=== PATIENT | female | born 1950 | race Caucasian/White ===

== ENCOUNTER → 2021-03-16 11:57 | Outpatient (CLI) | payer MEDICARE, SELFPAY ==
--- NOTE | ~2021-03-16 | DEXA_ITS ---
Bone Density Report Name: Clemencia Reyes Age: 70 Sex: Female Ethnicity: White Date of : 1950 Indication: postmenopausal osteoporosis; Referring Provider: Keerthi Marroquin Study: Bone densitometry was performed. Exam Date: March 16, 2021 Accession number: [id number] Bone Density: Region BMD T-score Z-score Classification AP Spine (L1-L4) 0.691 -3.2 -1.2 Osteoporosis Femoral Neck (Left) 0.582 -2.4 -0.6 Osteopenia Total Hip (Left) 0.753 -1.5 -0.1 Osteopenia Femoral Neck (Right) 0.574 -2.5 -0.7 Osteoporosis Total Hip (Right) 0.752 -1.6 -0.1 Osteopenia Total Hip Mean 0.753 -1.6 -0.1 Osteopenia World Health Organization criteria for BMD impression classify patients as: Normal (T-score at or above -1.0), Osteopenia (T-score between -1.0 and -2.5), or Osteoporosis (T-score at or below -2.5). 10-year Fracture Risk: FRAX not reported because: Some T-score for Spine Total or Hip Total or Femoral Neck at or below -2.5 Previous Exams: Region Exam Age BMD T-score BMD Change BMD Change Date g/cm2 vs Baseline vs Previous AP Spine(L1-L4) 03/16/2021 70 0.691 -3.2 -0.017 -0.017 12/22/2018 68 0.708 -3.1 Total Hip(Left) 03/16/2021 70 0.753 -1.5 0.000 0.000 12/22/2018 68 0.753 -1.5 Total Hip(Right) 03/16/2021 70 0.752 -1.6 0.001 0.001 12/22/2018 68 0.750 -1.6 *Denotes significance at 95% confidence level, LSC for AP Spine = 0.022 g/cm2, LSC for Total Hip = 0.027 g/cm2 Clinical Information Provided by Patient: Has used the following medications: Vitamin D, Calcium Patient maximum height was 62.5 Menopause Age: 44 No regular weight bearing exercise Onset of menses at age 13 Number of children 6 Impression: The patient has osteoporosis, based on the Total Spine T-score. No significant bone loss was observed. Discussion: INCREASED RISK OF FRACTURE. BONE DENSITY IS UNDESIRABLY LOW AT ONE OR MORE SKELETAL SITES, CONSISTENT WITH POSTMENOPAUSAL OSTEOPOROSIS. This patient's lowest T-score meets the World Health Organization's (WHO) criteria for osteoporosis at one or more sites (T-score -2.5 or below). In untreated patients, the risk of osteoporotic fracture increases approximately two-fold for each 1.0 SD decrease in T-score. Low bone density is not the only risk factor for fracture; also consider factors such as patient's age, frailty or poor health, risk of falling, risk of injury, previous o
--- NOTE | ~2021-03-16 | MM_ITS ---
EXAMINATION: MM screening [facility] BI w ian HISTORY: Screening TECHNIQUE: Craniocaudal and mediolateral oblique 3-D tomosynthesis images were obtained and synthetic 2-D images were generated. CAD analysis was submitted and interpreted. COMPARISON: Comparison to multiple prior studies sequentially, with oldest reviewed study dated 08/2012. BREAST PARENCHYMAL COMPOSITION: There are scattered areas of fibroglandular density. FINDINGS: There is no evidence of suspicious mass, calcification, or architectural distortion to sugg est malignancy in either breast. There has been no suspicious interval change. IMPRESSION: 1. No mammographic evidence of malignancy. 2. Recommend routine screening mammography in one year. BI-RADS Category 1: Negative Reviewed, dictated and finalized at location A.
== END ==
PROVIDERS: PCP Nurse Practitioner; Visit Provider Nurse Practitioner
DX: Z12.31 Encounter for screening mammogram for malignant neoplasm of breast (principal); M81.0 Age-related osteoporosis without current pathological fracture; M85.852 Other specified disorders of bone density and structure, left thigh; M85.851 Other specified disorders of bone density and structure, right thigh
CPT/HCPCS: 77063; 77067; 77080

== ENCOUNTER → 2022-01-22 07:48 | Outpatient (CLI) | payer MEDICARE, SELFPAY ==
--- NOTE | ~2022-01-22 | US_ITS ---
EXAMINATION: US right upper quadrant DATE: 01/22/2022 08:10 INDICATION: Abnormal liver function tests. TECHNIQUE: Multiple grayscale and Doppler ultrasound images of the abdomen were obtained. COMPARISON: Ultrasound 11/13/2017 FINDINGS: The visualized portions of the head and body of the pancreas are normal. There is diffuse h epatic steatosis. There is normal flow in main portal vein. The gallbladder is normal in size. No gal lstones or gallbladder wall thickening. There is no sonographic Bassett sign. The common duct is job l and measures 4 mm. IMPRESSION: 1. Diffuse hepatic steatosis. Reviewed, dictated and finalized at location A.
== END ==
PROVIDERS: PCP Internal Medicine; Visit Provider Clinical Nurse Specialist
DX: R74.8 Abnormal levels of other serum enzymes (principal); K76.0 Fatty (change of) liver, not elsewhere classified
CPT/HCPCS: 76705

== ENCOUNTER → 2022-08-16 09:03 | Outpatient (CLI) | payer MEDICARE, SELFPAY ==
--- NOTE | ~2022-08-16 | US_ITS ---
Limited Abdominal Sonogram: Real-time sonographic imaging of the right upper quadrant was performed. Clinical History: Abnormal serum enzymes Findings: The liver appears normal with no evidence of mass lesion or bile duct dilatation. Main por jono vein demonstrates normal direction of flow. The gallbladder is well distended, and appears normal with no evidence of gallstone or wall thickening. The common bile duct measures 4 mm. The visualize d pancreas, aorta, and IVC are unremarkable. Impression: No significant abnormality seen. Reviewed, dictated and finalized at location . AND SALARY ADMINISTRATOR Impression: No significant abnormality seen.
== END ==
PROVIDERS: PCP Internal Medicine; Visit Provider Clinical Nurse Specialist
DX: R74.8 Abnormal levels of other serum enzymes (principal)
CPT/HCPCS: 76705

== ENCOUNTER 2022-08-21 08:14 | Outpatient (CLI) | payer MEDICARE, SELFPAY ==
[2022-08-21 18:09] LABS: Basophils Percent Auto 0.5 % (0.2-1.2); Eosinophils Absolute Auto 0.1 K/mm3 (0-0.3); Eosinophils Percent Auto 1.9 % (0-4.4); Hematocrit 44.1 % (37.0-47.0); Hemoglobin 13.8 g/dL (12.0-15.0); Lymphocytes Absolute Auto 1.28 K/mm3 (0.9-3.2); Lymphocytes Percent Auto 30.7 % (18.3-44.2); Mean Corpuscular HGB Conc 31.3 g/dl (32-36); Mean Corpuscular Volume 89.6 fl (80-100); Mean Platelet Volume 10.6 fl (7.4-10.4); Monocytes Absolute Auto 0.3 K/mm3 (0.1-0.6); Monocytes Percent Auto 7.4 % (2.6-8.5); Neutrophils Absolute Auto 2.5 K/mm3 (1.3-6.7); Neutrophils Percent Auto 59.5 % (45.5-73.1); Platelet Count Result 146 k/mm3 (150-375); Red Blood Count 4.92 M/mm3 (4.2-5.4); Red Cell Distribution Width 13.3 % (11.5-14.5); White Blood Count 4.2 K/mm3 (4.5-10.0)
[2022-08-21 18:14] LABS: Alanine Aminotransferase 124 U/L (6-35); Albumin Level 4.5 g/dL (3.5-5.1); Alkaline Phosphatase 79 U/L (38-126); Anion Gap 3 mmol/L (8-16); Aspartate Amino Transferase 88 U/L (14-36); Bilirubin,Total 0.9 mg/dL (0.2-1.3); Blood Urea Nitrogen 19 mg/dL (7-17); Calcium 9.4 mg/dL (8.4-10.2); Carbon Dioxide 34 mmol/L (22-30); Chloride 101 mmol/L (98-107); Estimated Glomerular Filt Rate > 60; Glucose 140 mg/dL (65-110); Sodium 138 mmol/L (137-145)
[2022-08-21 18:53] LABS: Creatinine Urine 168.5 mg/dL
[2022-08-21 18:56] LABS: HIV 1/2 Ab P24 Ag Result Negative (Negative)
[2022-08-21 18:57] LABS: MALB Creatinine Ratio 5.9 mg/g (0-30); Microalbumin Urine Random 9.9 mg/L (0-16.7)
[2022-08-21 19:23] LABS: Hemoglobin A1C 6.7 % (<5.7)
== END 2022-08-21 08:15 | disposition home or self-care (01) ==
LOC: ANHGOSHLAB 08:15
PROVIDERS: PCP Internal Medicine; Visit Provider Clinical Nurse Specialist
DX: R74.8 Abnormal levels of other serum enzymes (principal); E11.9 Type 2 diabetes mellitus without complications; D69.6 Thrombocytopenia, unspecified
CPT/HCPCS: 36415; 80053; 82043; 83036; 85025; 86703; G0432

== ENCOUNTER 2022-12-31 09:16 | Outpatient (CLI) | payer MEDICARE, SELFPAY ==
[2022-12-31 20:28] LABS: Basophils Percent Auto 0.3 % (0.2-1.2); Eosinophils Absolute Auto 0.1 K/mm3 (0-0.3); Eosinophils Percent Auto 2.8 % (0-4.4); Hemoglobin 13.7 g/dL (12.0-15.0); Immature Granulocyte Absolute 0.01 K/mm3 (0.00-0.031); Immature Granulocyte Percent A 0.3 % (0-0.5); Lymphocytes Absolute Auto 1.14 K/mm3 (0.9-3.2); Lymphocytes Percent Auto 31.9 % (18.3-44.2); Mean Corpuscular HGB Conc 31.1 g/dl (32-36); Mean Corpuscular Hemoglobin 28.5 pg (26-34); Mean Corpuscular Volume 91.7 fl (80-100); Mean Platelet Volume 10.5 fl (7.4-10.4); Monocytes Absolute Auto 0.2 K/mm3 (0.1-0.6); Monocytes Percent Auto 6.4 % (2.6-8.5); Neutrophils Absolute Auto 2.1 K/mm3 (1.3-6.7); Neutrophils Percent Auto 58.3 % (45.5-73.1); Platelet Count Result 144 k/mm3 (150-375); Red Cell Distribution Width 13.1 % (11.5-14.5); White Blood Count 3.6 K/mm3 (4.5-10.0)
[2022-12-31 20:54] LABS: Alanine Aminotransferase 83 U/L (6-35); Albumin Level 4.1 g/dL (3.5-5.1); Alkaline Phosphatase 68 U/L (38-126); Anion Gap 5 mmol/L (8-16); Aspartate Amino Transferase 67 U/L (14-36); Bilirubin,Total 0.8 mg/dL (0.2-1.3); Blood Urea Nitrogen 17 mg/dL (7-17); Calcium 9.2 mg/dL (8.4-10.2); Carbon Dioxide 34 mmol/L (22-30); Chloride 102 mmol/L (98-107); Estimated Glomerular Filt Rate > 60; Glucose 120 mg/dL (65-110); Potassium 4.2 mmol/L (3.4-5.0); Sodium 141 mmol/L (137-145)
[2023-01-01 00:02] LABS: Creatinine Urine 83.2 mg/dL
[2023-01-01 00:04] LABS: MALB Creatinine Ratio 11.1 mg/g (0-30); Microalbumin Urine Random 9.2 mg/L (0-16.7)
== END 2022-12-31 09:17 | disposition home or self-care (01) ==
LOC: ANHGOSHLAB 09:19
PROVIDERS: PCP Internal Medicine; Visit Provider Nurse Practitioner
DX: R79.81 Abnormal blood-gas level (principal); R74.8 Abnormal levels of other serum enzymes; E11.9 Type 2 diabetes mellitus without complications
CPT/HCPCS: 36415; 80053; 82043; 82728; 83036; 85025

== ENCOUNTER 2023-07-04 09:46 | Outpatient (CLI) | payer MEDICARE, SELFPAY ==
[2023-07-04 12:07] LABS: Basophils Percent Auto 0.2 % (0.2-1.2); Eosinophils Absolute Auto 0.1 K/mm3 (0-0.3); Eosinophils Percent Auto 2.8 % (0-4.4); Hematocrit 44.6 % (37.0-47.0); Hemoglobin 14.1 g/dL (12.0-15.0); Immature Granulocyte Absolute 0.01 K/mm3 (0.00-0.031); Immature Granulocyte Percent A 0.2 % (0-0.5); Lymphocytes Absolute Auto 1.32 K/mm3 (0.9-3.2); Lymphocytes Percent Auto 28.7 % (18.3-44.2); Mean Corpuscular HGB Conc 31.6 g/dl (32-36); Mean Corpuscular Hemoglobin 28.3 pg (26-34); Mean Corpuscular Volume 89.6 fl (80-100); Mean Platelet Volume 10.6 fl (7.4-10.4); Monocytes Absolute Auto 0.3 K/mm3 (0.1-0.6); Neutrophils Absolute Auto 2.8 K/mm3 (1.3-6.7); Neutrophils Percent Auto 61.1 % (45.5-73.1); Platelet Count Result 187 k/mm3 (150-375); Red Blood Count 4.98 M/mm3 (4.2-5.4); Red Cell Distribution Width 13.4 % (11.5-14.5); White Blood Count 4.6 K/mm3 (4.5-10.0)
[2023-07-04 12:24] LABS: Alanine Aminotransferase 115 U/L (6-35); Albumin Level 4.4 g/dL (3.5-5.1); Alkaline Phosphatase 77 U/L (38-126); Anion Gap 4 mmol/L (8-16); Aspartate Amino Transferase 120 U/L (14-36); Bilirubin,Total 1.7 mg/dL (0.2-1.3); Blood Urea Nitrogen 17 mg/dL (7-17); Calcium 9.5 mg/dL (8.4-10.2); Carbon Dioxide 33 mmol/L (22-30); Chloride 103 mmol/L (98-107); Estimated Glomerular Filt Rate > 60; Glucose 144 mg/dL (65-110); Potassium 4.2 mmol/L (3.4-5.0); Sodium 140 mmol/L (137-145)
[2023-07-04 12:34] LABS: Creatinine Urine 156.8 mg/dL
[2023-07-04 12:35] LABS: MALB Creatinine Ratio 5.1 mg/g (0-30)
[2023-07-04 12:48] LABS: Hemoglobin A1C 6.7 % (<5.7)
== END 2023-07-04 09:47 | disposition home or self-care (01) ==
PROVIDERS: PCP Internal Medicine; Visit Provider Nurse Practitioner
DX: R74.8 Abnormal levels of other serum enzymes (principal); E11.9 Type 2 diabetes mellitus without complications; R79.81 Abnormal blood-gas level
CPT/HCPCS: 36415; 80053; 82043; 82728; 83036; 85025

== ENCOUNTER → 2023-07-04 10:30 | Outpatient (CLI) | payer MEDICARE, SELFPAY ==
--- NOTE | ~2023-07-04 | XR_ITS ---
XR shoulder LT min 2V DATE: 07/04/2023 10:44 INDICATION: Left shoulder pain TECHNIQUE: 4 views COMPARISON: None FINDINGS: Osteopenia. No fracture or dislocation, periosteal reaction or bone destruction or abnormal soft tissue calcification. Aortic arch calcification. IMPRESSION: Osteopenia Reviewed, dictated and finalized at location B. RNMENT SERVICE EXECUTIVE IMPRESSION: Osteopenia
== END ==
PROVIDERS: PCP Nurse Practitioner; Visit Provider Nurse Practitioner
DX: M85.812 Other specified disorders of bone density and structure, left shoulder (principal)
CPT/HCPCS: 73030

== ENCOUNTER 2023-10-09 08:04 | Outpatient (CLI) | payer MEDICARE, SELFPAY ==
[2023-10-09 14:25] LABS: Alanine Aminotransferase 108 U/L (6-35); Albumin Level 4.3 g/dL (3.5-5.1); Alkaline Phosphatase 82 U/L (38-126); Aspartate Amino Transferase 90 U/L (14-36); Bilirubin,Total 0.7 mg/dL (0.2-1.3)
== END 2023-10-09 08:05 | disposition home or self-care (01) ==
PROVIDERS: PCP Nurse Practitioner; Visit Provider Internal Medicine Gastroenterology
DX: R79.89 Other specified abnormal findings of blood chemistry (principal)
CPT/HCPCS: 36415; 80076

== ENCOUNTER 2024-01-01 08:40 | Outpatient (CLI) | payer MEDICARE, SELFPAY ==
[2024-01-01 20:30] LABS: Anion Gap 8 mmol/L (4-12); Blood Urea Nitrogen 16 mg/dL (7-17); Calcium 9.4 mg/dL (8.4-10.2); Carbon Dioxide 31 mmol/L (22-30); Chloride 100 mmol/L (98-107); Estimated Glomerular Filt Rate > 60; Glucose 161 mg/dL (65-110); Potassium 4.2 mmol/L (3.4-5.0); Sodium 139 mmol/L (137-145)
[2024-01-01 20:31] LABS: Basophils Percent Auto 0.2 % (0.2-1.2); Eosinophils Absolute Auto 0.1 K/mm3 (0-0.3); Eosinophils Percent Auto 2.5 % (0-4.4); Hematocrit 46.7 % (37.0-47.0); Hemoglobin 14.5 g/dL (12.0-15.0); Immature Granulocyte Absolute 0.01 K/mm3 (0.00-0.031); Immature Granulocyte Percent A 0.2 % (0-0.5); Lymphocytes Absolute Auto 1.21 K/mm3 (0.9-3.2); Lymphocytes Percent Auto 27.6 % (18.3-44.2); Mean Corpuscular Hemoglobin 28.5 pg (26-34); Mean Corpuscular Volume 91.9 fl (80-100); Mean Platelet Volume 10.1 fl (7.4-10.4); Monocytes Absolute Auto 0.3 K/mm3 (0.1-0.6); Monocytes Percent Auto 6.6 % (2.6-8.5); Neutrophils Absolute Auto 2.8 K/mm3 (1.3-6.7); Neutrophils Percent Auto 62.9 % (45.5-73.1); Platelet Count Result 151 k/mm3 (150-375); Red Blood Count 5.08 M/mm3 (4.2-5.4); Red Cell Distribution Width 12.8 % (11.5-14.5); White Blood Count 4.4 K/mm3 (4.5-10.0)
[2024-01-01 20:43] LABS: Creatinine Urine 113.6 mg/dL
[2024-01-01 20:47] LABS: MALB Creatinine Ratio 5.7 mg/g (0-30); Microalbumin Urine Random 6.5 mg/L (0-16.7)
[2024-01-01 21:34] LABS: Hemoglobin A1C 6.7 % (<5.7)
== END 2024-01-01 08:41 | disposition home or self-care (01) ==
LOC: ANHGOSHLAB 08:42
PROVIDERS: PCP Nurse Practitioner; Visit Provider Nurse Practitioner
DX: E11.9 Type 2 diabetes mellitus without complications (principal)
CPT/HCPCS: 36415; 80048; 82043; 83036; 85025

== ENCOUNTER 2024-01-01 08:56 | Outpatient (CLI) | payer MEDICARE, SELFPAY ==
--- NOTE | ~2024-01-01 | XR_ITS ---
Right Knee Technique: AP, lateral, and sunrise views were obtained. Clinical History: Pain Findings: No fracture or dislocation is seen. There is moderate degenerative spurring of the medial j oint line and patella. There is mild lateral joint line spurring. There is additional mild to moderat e spurring at the intercondylar notch. Soft tissues are unremarkable. No joint effusion is seen. Impression: Tricompartmental degenerative change, as detailed above. Reviewed, dictated and finalized at location M. Impression: Tricompartmental degenerative change, as detailed above.
== END 2024-01-01 08:57 ==
PROVIDERS: PCP Nurse Practitioner; Visit Provider Nurse Practitioner
DX: M17.11 Unilateral primary osteoarthritis, right knee (principal)
CPT/HCPCS: 73564

== ENCOUNTER 2024-04-02 11:34 | Outpatient (CLI) | payer MEDICARE, SELFPAY ==
[2024-04-02 18:02] LABS: Basophils Percent Auto 0.5 % (0.2-1.2); Eosinophils Absolute Auto 0.1 K/mm3 (0-0.3); Eosinophils Percent Auto 2.1 % (0-4.4); Hemoglobin 13.9 g/dL (12.0-15.0); Lymphocytes Absolute Auto 1.21 K/mm3 (0.9-3.2); Lymphocytes Percent Auto 31.5 % (18.3-44.2); Mean Corpuscular HGB Conc 32.3 g/dl (32-36); Mean Corpuscular Hemoglobin 29.3 pg (26-34); Mean Corpuscular Volume 90.7 fl (80-100); Mean Platelet Volume 10.5 fl (7.4-10.4); Monocytes Absolute Auto 0.2 K/mm3 (0.1-0.6); Monocytes Percent Auto 6.3 % (2.6-8.5); Neutrophils Absolute Auto 2.3 K/mm3 (1.3-6.7); Neutrophils Percent Auto 59.6 % (45.5-73.1); Platelet Count Result 150 k/mm3 (150-375); Red Blood Count 4.74 M/mm3 (4.2-5.4); Red Cell Distribution Width 13.3 % (11.5-14.5); White Blood Count 3.8 K/mm3 (4.5-10.0)
[2024-04-02 18:07] LABS: Alanine Aminotransferase 129 U/L (6-35); Albumin Level 4.3 g/dL (3.5-5.1); Alkaline Phosphatase 69 U/L (38-126); Anion Gap 5 mmol/L (4-12); Aspartate Amino Transferase 99 U/L (14-36); Bilirubin,Total 1.2 mg/dL (0.2-1.3); Blood Urea Nitrogen 19 mg/dL (7-17); Calcium 9.4 mg/dL (8.4-10.2); Carbon Dioxide 31 mmol/L (22-30); Chloride 103 mmol/L (98-107); Cholesterol 157 mg/dL (0-200); Estimated Glomerular Filt Rate > 60; Glucose 134 mg/dL (65-110); HDL Direct 42 mg/dL; Potassium 4.4 mmol/L (3.4-5.0); Sodium 139 mmol/L (137-145); Triglycerides 100 mg/dL (<150)
[2024-04-02 18:18] LABS: LDL Cholesterol Direct 86 mg/dL
[2024-04-02 18:30] LABS: Hemoglobin A1C 7.2 % (<5.7)
[2024-04-02 18:44] LABS: Vitamin D 25 Hydroxy 86.1 ng/mL
== END 2024-04-02 11:35 | disposition home or self-care (01) ==
PROVIDERS: PCP Nurse Practitioner; Visit Provider Nurse Practitioner
DX: E11.9 Type 2 diabetes mellitus without complications (principal); E55.9 Vitamin D deficiency, unspecified; K75.81 Nonalcoholic steatohepatitis (NASH); R79.89 Other specified abnormal findings of blood chemistry
CPT/HCPCS: 36415; 80053; 80061; 82306; 83036; 85025

== ENCOUNTER 2024-09-02 08:52 | Outpatient (CLI) | payer MEDICARE, SELFPAY ==
--- OUTSIDE RECORDS SUMMARY | 2024-09-02 09:09 | XMS_ITS | Clinical Summary ---
Author Organization [facility] Address [address] [place] [id number] Care Team Providers Care Groundskeeper Porter Name Role Phone Unavailable Primary Care Provider Unavailabl e Social History Tobacco Use Types Packs/Day Years Used Date Smoking Tobacco: Never Assessed Comments Unknown Sex and Gender Information Value Date Recorded Sex Assigned at Not on file Legal Sex Female 8:31 PM CDT Gender Identity Not on file Sexual Orientation Not on file Plan of Treatment Health Maintenance Due Date Last Done Comments Colorectal Cancer Screening Colonoscopy (10 Years) 1950 Hepatitis C 09/06/1969 DTaP, Tdap and Td Vaccines ( 1 - Tdap) 09/06/1970 Mammogram Screening 1991 Zoster Vaccines (1 of 2) 09/06/2001 Dexa Scan (General) 09/06/2016 Pneumococcal Vaccine: 65+ Ye ars (1 of 1 - PCV) 09/06/2016 COVID-19 Vaccine (2023-2 5 season) 2024 Influenza Adult (#1) 2024 RSV Immunization or 60+ Years (1 - 1-dose 75+ series) 09/06/2026 Meningococcal B Vaccine Aged Out No l onger eligible based on patient's age to complete this topic Meningococcal Vaccine Aged Out No tash antonio eligible based on patient's age to complete this topic RSV Immunizations Under 20 Months Aged Out No longer eligible based on patient's age to complete this topic
[2024-09-02 14:39] LABS: Basophils Percent Auto 0.3 % (0.2-1.2); Eosinophils Absolute Auto 0.1 K/mm3 (0-0.3); Eosinophils Percent Auto 2.6 % (0-4.4); Hematocrit 44.1 % (37.0-47.0); Hemoglobin 13.9 g/dL (12.0-15.0); Immature Granulocyte Absolute 0.01 K/mm3 (0.00-0.031); Immature Granulocyte Percent A 0.3 % (0-0.5); Lymphocytes Absolute Auto 1.02 K/mm3 (0.9-3.2); Lymphocytes Percent Auto 29.8 % (18.3-44.2); Mean Corpuscular HGB Conc 31.5 g/dl (32-36); Mean Corpuscular Hemoglobin 28.7 pg (26-34); Mean Corpuscular Volume 91.1 fl (80-100); Mean Platelet Volume 10.9 fl (7.4-10.4); Monocytes Absolute Auto 0.2 K/mm3 (0.1-0.6); Neutrophils Absolute Auto 2.1 K/mm3 (1.3-6.7); Platelet Count Result 136 k/mm3 (150-375); Red Blood Count 4.84 M/mm3 (4.2-5.4); Red Cell Distribution Width 13.5 % (11.5-14.5); White Blood Count 3.4 K/mm3 (4.5-10.0)
[2024-09-02 14:49] LABS: Alanine Aminotransferase 154 U/L (6-35); Albumin Level 4.4 g/dL (3.5-5.1); Alkaline Phosphatase 91 U/L (38-126); Anion Gap 9 mmol/L (4-12); Aspartate Amino Transferase 125 U/L (14-36); Blood Urea Nitrogen 21 mg/dL (7-17); Calcium 9.4 mg/dL (8.4-10.2); Carbon Dioxide 28 mmol/L (22-30); Chloride 103 mmol/L (98-107); Cholesterol 170 mg/dL (0-200); Estimated Glomerular Filt Rate > 60; Glucose 189 mg/dL (65-110); HDL Direct 37 mg/dL; Potassium 4.4 mmol/L (3.4-5.0); Sodium 140 mmol/L (137-145); Triglycerides 105 mg/dL (<150)
[2024-09-02 15:02] LABS: LDL Cholesterol Direct 109 mg/dL
[2024-09-02 15:59] LABS: Hemoglobin A1C 7.5 % (<5.7)
[2024-09-02 18:27] LABS: Vitamin D 25 Hydroxy 63.2 ng/mL
== END 2024-09-02 08:53 | disposition home or self-care (01) ==
PROVIDERS: PCP Internal Medicine; Visit Provider Nurse Practitioner
DX: E11.9 Type 2 diabetes mellitus without complications (principal); E55.9 Vitamin D deficiency, unspecified; I10 Essential (primary) hypertension
CPT/HCPCS: 36415; 80053; 80061; 82306; 83036; 84443; 85025

== ENCOUNTER 2024-12-29 11:07 | Outpatient (CLI) | payer MEDICARE, SELFPAY ==
--- NOTE | 2024-12-29 10:53 | CY_PTH ---
PATIENT: Clemencia Reyes LOC: ANAB #:[id number] AGE/SX: 74/F ROOM: RE12/29/[address]: Lee Bertrand MD : 1950 BED: DIS: 12/29/2024 SPEC #: [id number] RECD: 12/29/24 13:31 STATUS: SOUT REQ #: [id number] GAL: 12/29/24 10:[address]: Lee Bertrand DEPT: [facility] Cytology RECD BY: Kiersten Hutchinson ENTERED: 12/29/24 13:32 SP TYPE: Cytology OTHR DR: Ronny Jackson DO Tissues: A - Flow Procedures: Flow Cytometry
[2024-12-29 11:50] LABS: Hematocrit 43.0 % (37.0-47.0); Hemoglobin 14.0 g/dL (12.0-15.0); Immature Granulocyte Percent A 0.3 % (0-0.5); Lymphocytes Absolute Auto 1.09 K/mm3 (0.9-3.2); Mean Corpuscular HGB Conc 32.6 g/dl (32-36); Mean Corpuscular Hemoglobin 29.0 pg (26-34); Mean Corpuscular Volume 89.2 fl (80-100); Nucleated Red Blood Cells Absolute Auto 0.000 K/mm3 (0.0-0.012); Nucleated Red Blood Cells Perc 0.0 % (0.0-0.2); Platelet Count Result 128 k/mm3 (150-375); Red Blood Count 4.82 M/mm3 (4.2-5.4); White Blood Count 3.9 K/mm3 (4.5-10.0)
[2024-12-29 13:25] LABS: Alanine Aminotransferase 107 U/L (6-35); Albumin Level 4.5 g/dL (3.5-5.1); Alkaline Phosphatase 90 U/L (38-126); Anion Gap 7 mmol/L (4-12); Aspartate Amino Transferase 88 U/L (14-36); Bilirubin,Total 0.9 mg/dL (0.2-1.3); Blood Urea Nitrogen 24 mg/dL (7-17); Calcium 9.5 mg/dL (8.4-10.2); Carbon Dioxide 28 mmol/L (22-30); Chloride 104 mmol/L (98-107); Estimated Glomerular Filt Rate 52; Glucose 149 mg/dL (65-110); Potassium 4.2 mmol/L (3.4-5.0); Sodium 139 mmol/L (137-145); Total Protein 8.2 g/dL (6.3-8.2)
[2024-12-29 13:26] LABS: Iron 131 ug/dL (37-170)
[2024-12-29 13:40] LABS: Percent Iron Saturation 39 % (20-50)
[2024-12-29 14:11] LABS: Ferritin 157.00 ng/mL (11.1-264)
[2024-12-29 14:38] LABS: Vitamin B12 > 1000.0 pg/mL (239-931)
[2024-12-31 11:09] LABS: ANA by IFA Rfx Titer/Pattern Negative (.)
== END 2024-12-29 11:08 | disposition home or self-care (01) ==
PROVIDERS: PCP Internal Medicine; Visit Provider Internal Medicine Hematology & Oncology
DX: D64.9 Anemia, unspecified (principal); D69.59 Other secondary thrombocytopenia; D72.819 Decreased white blood cell count, unspecified
CPT/HCPCS: 36415; 80053; 82607; 82728; 82746; 83540; 83550; 83921; 84238; 85025; 86022; 86038; 88184

== ENCOUNTER 2025-01-07 09:21 | Outpatient (CLI) | payer MEDICARE, SELFPAY ==
--- NOTE | ~2025-01-07 | US_ITS ---
US abdomen complete EXAMINATION: US Abdomen Complete INDICATION: Secondary thrombocytopenia PROCEDURE: Realtime High Resolution abdomen ultrasound. COMPARISON: No prior studies for comparison FINDINGS: Gallbladder within normal limits. No gallstones, pericholecystic fluid, gallbladder wall t hickening or biliary dilatation. Common bile duct measures 4 mm. Liver echotexture is increased, consistent with fatty infiltration.. Pancreas within normal limits. Pancreatic tail is obscured by bowel gas. Spleen is enlarged measuring 14 cm.. Renal echotexture is within normal limits bilaterally without hydronephrosis, contour deforming mass or renal stone. Righ t kidney measures 10.5 cm. Left kidney measures 11.2 cm. Visualized aspects of the aorta and IVC are within normal limits. Portal vein is patent. No sonograph ic Bassett's sign indicated by the technologist. IMPRESSION: 1: Splenomegaly. 2: Fatty infiltration of the liver. Reviewed, dictated and finalized at location A.
== END 2025-01-07 09:22 | disposition home or self-care (01) ==
LOC: MICIMG 09:22
PROVIDERS: PCP Internal Medicine; Visit Provider Internal Medicine Hematology & Oncology
DX: D69.59 Other secondary thrombocytopenia (principal); R16.1 Splenomegaly, not elsewhere classified; K76.0 Fatty (change of) liver, not elsewhere classified
CPT/HCPCS: 76700

== ENCOUNTER 2025-02-22 14:03 | Outpatient (CLI) | payer MEDICARE, SELFPAY ==
--- NOTE | ~2025-02-22 | MM_ITS ---
EXAMINATION: MM screening ana BI w ian HISTORY: Screening TECHNIQUE: Craniocaudal and mediolateral oblique 3-D tomosynthesis images were obtained and synthetic 2-D images were generated. CAD analysis was submitted and interpreted. COMPARISON: Comparison to multiple prior studies sequentially, with oldest reviewed study dated , 05/18/2013 BREAST PARENCHYMAL COMPOSITION: There are scattered areas of fibroglandular density. FINDINGS: There is no evidence of suspicious mass, calcification, or architectural distortion to suggest malignancy in either breast. IMPRESSION: 1. No mammographic evidence of malignancy. 2. Recommend routine screening mammography in one year. BI-RADS Category 1: Negative Reviewed, dictated and finalized at location B.
--- NOTE | ~2025-02-22 | DEXA_ITS ---
Bone Density Report Name: LACHO PRICE Age: 74 Sex: Female Ethnicity: White Date of : 1950 Indication: postmenopausal osteoporosis; Referring Provider: Keerthi Marroquin Study: Bone densitometry was performed. Exam Date: February 22, 2025 Accession number: [id number] Bone Density: Region BMD T-score Z-score Classification AP Spine(L1-L4) 0.702 -3.1 -0.8 Osteoporosis Femoral Neck (Left) 0.547 -2.7 -0.7 Osteoporosis Total Hip (Left) 0.689 -2.1 -0.4 Osteopenia Femoral Neck (Right) 0.592 -2.3 -0.3 Osteopenia Total Hip (Right) 0.669 -2.2 -0.5 Osteopenia Total Hip Mean 0.679 -2.2 -0.5 Osteopenia World Health Organization criteria for BMD impression classify patients as: Normal (T-score at or above -1.0), Osteopenia (T-score between -1.0 and -2.5), or Osteoporosis (T-score at or below -2.5). 10-year Fracture Risk: FRAX not reported because: Some T-score for Spine Total or Hip Total or Femoral Neck at or below -2.5 Previous Exams: -- Region Exam Age BMD T-score BMD Change BMD Change Date g/cm2 vs Baseline vs Previous -- AP Spine (L1-L4) 02/22/2025 74 0.702 -3.1 -0.7% 1.7% 03/16/2021 70 0.691 -3.2 -2.4% -2.4% 12/22/2018 68 0.708 -3.1 Total Hip(Left) 02/22/2025 74 0.689 -2.1 -8.5%* -8.5%* 03/16/2021 70 0.753 -1.5 0.0% 0.0% 12/22/2018 68 0.753 -1.5 Total Hip(Right) 02/22/2025 74 0.669 -2.2 -10.9%* -11.0%* 03/16/2021 70 0.752 -1.6 0.2% 0.2% 12/22/2018 68 0.750 -1.6 -- *Denotes significance at 95% confidence level, LSC for AP Spine = 0.022 g/cm2, LSC for Total Hip = 0.027 g/cm2 Clinical Information Provided by Patient: Has used the following medications: Vitamin D Patient maximum height was 62 Menopause Age: 44 Does not regularly consume dairy products Onset of menses at age 14 Number of children 6 Impression: The patient has osteoporosis, based on the Total Spine T-score. The BMD for the Total Hip(Left) decreased, changing by -8.5% since the last DXA exam. The BMD for the Total Hip(Right) decreased, changing by -11.0% since the last DXA exam. Discussion: INCREASED RISK OF FRACTURE. BONE DENSITY IS UNDESIRABLY LOW AT ONE OR MORE SKELETAL SITES, CONSISTENT WITH POSTMENOPAUSAL OSTEOPOROSIS. This patient's lowest T-score meets the World Health Organization's (WHO) criteria for osteoporosis at one or more sites (T-score -2.5 or below). In untreated patients, the risk of osteoporotic fracture increases approximately two-fold for each 1.0 SD decrease in T-score. Low bone density is not the only risk factor for fracture; also consider factors such as patient's age, frailty or poor health, risk of falling, risk of injury, previous osteoporotic fracture, family history of osteoporosis, cigarette smoking, low body weight, etc. Not everyone with low bone mineral density has osteoporosis; osteomalacia and other metabolic bone disorders should also be considered. Patients who have osteoporosis should be evaluated for specific diseases and conditions (secondary causes) that may cause or contribute to bone loss. The [place] [employer] Clinical Endocrinologists (AACE) and National Osteoporosis Foundation (NOF) recommend pharmacologic intervention for all postmenopausal women whose T-score is in this range. The patient should follow a healthful lifestyle (good nutrition with adequate calcium and vitamin D, and appropriate weight-bearing exercise). Follow-Up: Consider a repeat BMD and Vertebral Fracture Assessment (VFA) exam in 2 years or sooner if medically necessary, to reassess this patient's status. Reported by: RUDOLPH on 02/22/2025 2:42:00 PM. Reviewed, dictated and finalized at location A.
== END 2025-02-22 14:04 | disposition home or self-care (01) ==
LOC: MICIMG 14:04
PROVIDERS: PCP Internal Medicine; Visit Provider Nurse Practitioner
DX: Z12.31 Encounter for screening mammogram for malignant neoplasm of breast (principal); Z78.0 Asymptomatic menopausal state; M81.0 Age-related osteoporosis without current pathological fracture; M85.852 Other specified disorders of bone density and structure, left thigh; M85.851 Other specified disorders of bone density and structure, right thigh
CPT/HCPCS: 77063; 77067; 77080

== ENCOUNTER 2025-03-10 08:36 | Outpatient (CLI) | payer MEDICARE, SELFPAY ==
--- OUTSIDE RECORDS SUMMARY | 2025-03-10 08:38 | XMS_ITS | Clinical Summary ---
Author Organization [facility] Address [address] [place] [address] Care Team Providers Care Six Sigma Black Belt Engineer Name Role Phone Ronny Jackson DO Primary Care Provider Allergies Active Allergy Reactions Criticality Noted Date Comments Cortisone Rash Medium 02/24/2023 redness Iodinated Contrast Media Unknown 02/24/2023 Medications pantoprazole (PROTONIX) 40 mg Tablet, Delayed Release (E.C.) Take 40 mg by mouth daily. Active mecobalamin/L-me folate/B6 phos (METANX ORAL) Take by mouth 2 times daily. Active magnesium oxide 400 mg magnesium Capsule Take 400 mg by mouth daily. Active potassium citrate 99 mg Capsule Take 99 mg by mouth daily. Active cholecalciferol, vitamin D3, 5,000 unit Take 5,000 Units by mouth daily. Active ascorbic acid, vitamin C, (VITAMIN C) 1,000 mg Tablet Take 1,000 mg by mouth daily. Active zinc GLUCONATE 50 mg Tablet Take 50 mg by mouth daily. Active OTHER Bone-up,ora lly two times daily Active salmon oil/omega-3 fatty acids (SALMON OIL-1000 ORAL) Take 1,300 mg by mouth daily. Active Active Problems No known active problems Encounters Date Type Department Care Team Description 03/08/2025 External Device Data STL ABSTRACTION Provider, Abstract 03/01/2025 External Device Data STL ABSTRACTION Provider, Abstract 02/22/2025 External Device Data STL ABSTRACTION Provider, Abstract 01/13/2025 4:30 PM CDT Telephone Check Up [facility] and Hematology - [place] [address] [place] [address] Lee Bertrand MD Chronic anemia (Primary Dx) 01/10/2025 Orders Only [facility]ology - [place] [address] [place] [address] Lee Bertrand MD 01/05/2025 Orders Only [facility] Hematology - [place] [address] [place] [address] Lee Bertrand MD 01/04/2025 External Device Data STL ABSTRACTION Provider, Abstract 01/04/2025 External Device Data STL ABSTRACTION Provider, Abstract 01/04/2025 External Device Data STL ABSTRACTION Provider, Abstract 01/03/2025 Abstract [facility]ology - [place] [address] [place] [address] Lee Bertrand MD 01/03/2025 Orders Only [facility] Hematology - [place] [address] [place] [address] Lee Bertrand MD 12/31/2024 Orders Only [facility]ology - [place] [address] [place] [address] Lee Bertrand MD 12/29/2024 10:30 AM CDT Office Visit [facility] Hematology - [place] [address] [place] [address] Lee Bertrand MD Chronic anemia (Primary Dx); Other secondary thrombocytopenia; Leukopenia, unspecified type from Last 3 Months Family History Medical History Relation Name Comments No Known Problems Brother 1 Heart Disease Brother 2 No Known Problems Child 1 No Known Problems Child 2 No Known Problems Child 3 No Known Problems Child 4 No Known Problems Child 5 No Known Problems Child 6 Cancer Father Heart Disease Father Diabetes Mother Esophageal Cancer Sister 1 Suicidality Sister 2 Heart Disease Sister 4 Relation Name Status Comments Brother 1 Alive Brother 2 Alive Child 1 Alive Child 2 Alive Child 3 Alive Child 4 Alive Child 5 Alive Child 6 Alive Father Mother Sister 1 Sister 2 Sister 3 Alive Sister 4 Alive Social History Tobacco Use Types Packs/Day Years Used Date Smoking Tobacco: Never Smokeless Tobacco: Never Alcohol Use Standard Drinks/Week Comments Never 0 (1 standard drink = 0.6 oz pur e alcohol) Comments Unknown Sex and Gender Information Value Date Recorded Sex Assigned at Not on file Legal Sex Female 10:46 AM CDT Gender Identity Not on file Sexual Orientation Not on file Last Filed Vital Signs Vital Sign Reading Time Taken Comments Blood Pressure 132/79 12/29/2024 10:30 AM CDT Pulse 65 12/29/2024 10:30 AM CDT Temperature 36.4 C (97.6 F) 12/29/2024 10:30 AM CDT Respiratory Rate 16 12/29/2024 10:30 AM CDT Oxygen Saturation 96% 12/29/2024 10:30 AM CDT Inhaled Oxygen Concentration - - Weight 63.2 kg (139 lb 6.4 oz) 12/29/2024 10:30 AM CDT Height 157.5 cm (5' 2) 12/29/2024 10:30 AM CDT Body Mass Index 25.5 12/29/2024 10:30 AM CDT Plan of Treatment Upcoming Encounters Date Type Department Care Team (Late st Contact Info) Description 07/19/2025 11:45 AM PIPE STRESS ENGINEER Office Visit [facility] Oncology and Hematology [facility] [address] [place] [address] [facility] [address] [place] [address] Lee Bertrand MD [address] [facility] [address] [place] [address] Health Maintenance Due Date Last Done Comments DTAP/TDAP/TD VACCINES (1 - Tdap) 09/06/1970 BREAST CANCER SCREENING 1991 COLORECTAL SCREENING 09/06/1996 Colorectal Cancer Screening 09/06/1996 FIT-DNA Q 3 years 09/06/1996 FIT/FOBT Q 1 year 09/06/1996 Flex Sig/CT Colonography Q 5 years 09/06/1996 PNEUMOCOCCAL VACCINE 50+ YEARS (1 of 1 - PCV) 09/07/19 02 ZOSTER VACCINE (1 of 2) 09/06/2001 OSTEOPOROSIS SCREENING 09/06/2016 INFLUENZA VACCINE (#1) 2025 RSV VACCINE (60+ or ) (1 - 1-dose 75+ series) 09/06/2026 Procedures Procedure Name Priority Date/Time Associated Diagnosis Comments US ABDOMEN COMPLETE Routine 01/07/2025 8 :50 AM CDT BRIDGET PANEL Routine 12/29/2024 5:12 PM CDT COMPREHENSIVE METABOLIC PANEL Routine 12/29/2024 3:04 PM CDT METHYLMALONIC ACID Routine 12/29/2024 1: 46 PM CDT FLOW CYTOMETRY REPORT Routine 12/29/2024 10:54 AM CDT PLATELET ANTIBODIES DIRECT Routine 12/29/2024 9:49 AM CDT from Last 3 Months Results * US ABDOMEN COMPLETE (01/07/2025 8:50 AM CDT) Anatomical Region Laterality Modality Abdomen Ultrasound us Lee Bertrand MD US ORDERABLES Final Result * BRIDGET PANEL (12/29/2024 5:12 PM CDT) Blood us Lee Bertrand MD CHEMISTRY ORDERABLES Final Resu lt * COMPREHENSIVE METABOLIC PANEL (12/29/2024 3:04 PM CDT) Blood Lee Bertrand MD CHEMISTRY ORDERABLES Final Resu lt * METHYLMALONIC ACID (12/29/2024 1:46 PM CDT) Blood us Lee Bertrand MD CHEMISTRY ORDERABLES Final Resu lt * FLOW CYTOMETRY REPORT (12/29/2024 10:54 AM CDT) us Lee Bertrand MD PATHOLOGY/CYTOLOGY ORDERABLES F inal Result * PLATELET ANTIBODIES DIRECT (12/29/2024 9:49 AM CDT) Blood Lee Bertrand MD HEMATOLOGY ORDERABLES Final Res ult from Last 3 Months Insurance [facility] [id number] Care Teams Six Sigma Black Belt Engineer Relationship Specialty Start Date End Date Ronny Jackson DO [address] [facility] [address] [place] [address] PCP - General Internal Medicine 12/29/24
--- OUTSIDE RECORDS SUMMARY | 2025-03-10 08:39 | XMS_ITS | Encounter Summary ---
Author Organization [facility] Address [address] [place] [address] Care Team Providers Care Cloud Physicist Name Role Phone Ronny Jackson DO Primary Care Provider Encounter Details Date Type Department Care Team (Late st Contact Info) Description 03/08/2025 External Device Data STL ABSTRACTION Provider, Abstract NO ADDRESS ON FILE Social History Tobacco Use Types Packs/Day Years Used Date Smoking Tobacco: Never Smokeless Tobacco: Never Alcohol Use Standard Drinks/Week Comments Never 0 (1 standard drink = 0.6 oz pur e alcohol) Comments Unknown Sex and Gender Information Value Date Recorded Sex Assigned at Not on file Legal Sex Female 10:46 AM CDT Gender Identity Not on file Sexual Orientation Not on file documented as of this encounter Plan of Treatment Upcoming Encounters Date Type Department Care Team (Late st Contact Info) Description 07/19/2025 11:45 AM PARIMUTUEL TICKET SELLER Office Visit [facility] Oncology and Hematology - [place] [address] [facility] [address] [place] [address] Lee Bertrand MD [address] [facility] [address] [place] [address] documented as of this encounter Visit Diagnoses Not on filedocumented in this encounter Care Teams Cloud Physicist Relationship Specialty Start Date End Date Ronny Jackson DO [address] [facility] [address] [place] [address] PCP - General Internal Medicine 12/29/24 documented as of this encounter
--- OUTSIDE RECORDS SUMMARY | 2025-03-10 08:39 | XMS_ITS | Clinical Summary ---
Author Organization [facility] Address [address] [place] [address] Care Team Providers Care Certified Personal Chef Name Role Phone Ronny Jackson DO Primary Care Provider [phone] Allergies Active Allergy Reactions Criticality Noted Date Comments Cortisone Rash Medium 02/24/2023 redness Iodinated Contrast Media Unknown 02/24/2023 Medications salmon oil/omega-3 fatty acids (SALMON OIL-1000 ORAL) Take by mouth 1300mg qd Active UNABLE TO FIND Bone Up bid Act mara UNABLE TO FIND Super B10 1000mg bid Active UNABLE TO FIND Potassium 99mg qd Active ZINC ORAL Take by mouth 50mg qd Active cholecalciferol (Vitamin D3) 5,000 unit tablet qd Active pantoprazole DR (PROTONIX) 40 mg EC tablet Take 1 tablet (40 mg total) by mouth daily Active UNABLE TO FIND Metant bid Acti ve magnesium oxide 400 mg magnesium capsule Take by mouth qd Active lisinopriL (PRINIVIL,ZESTR IL) 10 mg tablet Take 1 tablet (10 mg total) by mouth daily Active diclofenac DR (VOLTAREN) 75 mg EC tablet 1 tablet (75 mg total) 2 (two) times a day 4 Active Active Problems Problem Noted Date Diagnosed Date Metabolic dysfunction-associated steatohepatitis (MASH) 03/04/2024 Assessment & Plan (03/04/2024 6:45 PM CDT): We discussed the cause of increased hepatic fat, i.e., inadequate metabolism of fat delivered to the liver. When associated with elevated transaminases, this is non-alcoholic steatohepatitis. This inflammation can lead to scar tissue or cirrhosis of the liver in approximately 30% of cases. Patients with cirrhosis are at risk for developing complications of portal hypertension, liver failure, , liver cancer, and/or the need for a liver transplant. Fat in the absence of elevated transaminases is non-alcoholic fatty liver disease. Routinely, this is not associated with inflammation or progressive hepatic fibrosis. The most effective treatment of fatty liver is weight loss, ideally achieved through a combination of caloric restriction and exercise. Aerobic exercise for 4 hours a week can accelerate fat metabolism and lead to improvement of liver tests. Weight loss of 5-10% of the current body weight usually leads to improvement in liver tests, liver inflammation, and a decrease in hepatic fibrosis. In the past, she lost 30 lb when she was diagnosed with diabetes. Thus, she clearly is able to lose weight. I am hopeful caloric restriction will lead to improvement of the hepatic steatosis and the abnormal liver tests. Abnormal LFTs 02/24/2023 Assessment & Plan (03/04/2024 6:44 PM CDT): Secondary to metabolic dysfunction associated steatohepatitis. A decrease in hepatic fat could lead to improvement in liver biochemistries. I see no need for additional evaluation in light of the previous testing and results. Assessment & Plan (02/24/2023 4:23 PM CDT): Etiology unclear. With a history of obesity and hepatic steatosis sonographically, this is most likely related to non-alcoholic steatohepatitis. The weight loss has clearly decreased the amount of hepatic steatosis based on the sonographic findings earlier this year. However, she may still have hepatic fat, though not an adequate amount to be detected sonographically. I cannot rule out other causes of elevated liver biochemistries, thus, I sent off a number of studies to rule out other types of chronic liver disease. Depending on the results, there may be the need for additional studies. We even discussed the possibility of a liver biopsy to provide a definitive diagnosis. Further recommendations based on the results of the studies ordered. Essential hypertension 02/24/2023 Surgical History Surgery Date Site/Laterality Comments TUBAL LIGATION ESOPHAGOGASTRODUODENOSCOPY COLONOSCOPY US GUIDED BIOPSY LIVER 04/04/2023 N/A Medical History Medical History Date Comments Jimenez's esophagus Hypertension Liver disease Family History Medical History Relation Name Comments Cancer Father Diabetes Father Heart failure Mother Hypertension Mother Esophageal cancer Sister Relation Name Status Comments Father Mother Sister Social History Tobacco Use Types Packs/Day Years Used Date Smoking Tobacco: Never Smokeless Tobacco: Never Tobacco Cessation:Counseling Given: Not Answered AUDIT-C Answer Date Recorded Q1: How often do you have a drink containing alcohol? Never 02/24/2023 Q2: How many drinks containi ng alcohol do you have on a typical day when you are drinking? 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 Gender Identity Not on file Sexual Orientation Not on file Occupation Industry Job Start Date Job End Date Retired Not on file Not on file Not on file Obstetrics History Last Filed Vital Signs Vital Sign Reading Time Taken Comments Blood Pressure 136/82 03/04/2024 3:34 PM CDT Pulse 71 03/04/2024 3:34 PM CDT Temperature 36.2 C (97.2 F) 03/04/2024 3:34 PM CDT Respiratory Rate 14 04/04/2023 1:45 PM CDT Oxygen Saturation 98% 03/04/2024 3:34 PM CDT Inhaled Oxygen Concentration - - Weight 65.3 kg (144 lb) 03/04/2024 3:34 PM CDT Height 157.5 cm (5' 2) 03/04/2024 3:34 PM CDT Body Mass Index 26.34 03/04/2024 3:34 PM CDT Plan of Treatment Health Maintenance Due Date Last Done Comments Breast Cancer Screening-Mammogram 1950 Colon Cancer Screening-Colonoscopy 1950 Depression Screening 1950 Fall Risk Assessment 1950 Osteoporosis Screening-Bone Density Scan 1950 DTaP/Tdap/Td Vaccine (1 - Tdap) 09/06/1962 Hepatitis B Screening 09/06/1969 Pneumococcal vaccine 65+ (1 of 2 - PCV) 09/06/1970 Zoster Vaccine (1 of 2) 09/06/2001 Well Visit 65+ 09/06/2016 Influenza Vaccine (#1) 2025 Hepatitis C Screening Completed 02/24/2023 Procedures Procedure Name Priority Date/Time Associated Diagnosis Comments HEPATITIS C ANTIBODY Routine 02/24/2023 8:57 AM CDT Abnormal LFTs from Last 3 Months or Most Recently Relevant to Health Maintenance Results * Hepatitis C antibody Blood (02/24/2023 8:57 AM CDT) Hep C Ab Nonreactive Nonreactive Comment:Antibodies to HCV no t detected. Does NOT exclude the possibility of recent exposure to HCV. Current interpretive data was last revised on 22 Blood 02/24/2023 8:57 AM CDT 02/24/2023 9:12 AM CDT Chad Harper MD LAB MICROBIOLOGY - GEN ERAL ORDERABLES Final Result [facility] Department [place] [address] from Last 3 Months or Most Recently Relevant to Health Maintenance Insurance [facility] MEDICARE ADVANTAGE [facility] MEDICARE ADVANTAGE Advance Directives For more information, please contact: [phone] * Full Code (Latest Code Status on File) Date Activated Date Inactivated Comments 04/04/2023 11:50 AM 04/05/2023 5:17 AM Care Teams Certified Personal Chef Relationship Specialty Start Date End Date Ronny Jackson DO PCP - General Internal Medicine 09/04/22
--- OUTSIDE RECORDS SUMMARY | 2025-03-10 08:39 | XMS_ITS | Clinical Summary ---
Author Organization [facility] Address [address] [place] [id number] Care Team Providers Care Election Assistant Name Role Phone Unavailable Primary Care Provider [...] 1 - Tdap) 09/06/1970 Mammogram Screening 1991 Pneumococcal Vaccine: 50+ Ye ars (1 of 1 - PCV) 09/06/2001 Zoster Vaccines (1 of 2) 09/06/2001 Dexa Scan (General) 09/06/2016 COVID-19 Vaccine ( - 2023-2 5 season) 2025 RSV Immunization or 60+ Years (1 - [...]
[2025-03-10 17:20] LABS: Anion Gap 3 mmol/L (4-12); Blood Urea Nitrogen 24 mg/dL (7-17); Calcium 8.9 mg/dL (8.4-10.2); Carbon Dioxide 31 mmol/L (22-30); Chloride 105 mmol/L (98-107); Estimated Glomerular Filt Rate > 60; Glucose 132 mg/dL (65-110); Potassium 4.1 mmol/L (3.4-5.0); Sodium 139 mmol/L (137-145)
[2025-03-10 17:45] LABS: MALB Creatinine Ratio 8.4 mg/g (0-30)
[2025-03-10 17:51] LABS: Hemoglobin A1C 6.8 % (<5.7)
== END 2025-03-10 08:37 | disposition home or self-care (01) ==
LOC: ANHGOSHLAB 08:36
PROVIDERS: Visit Provider Nurse Practitioner
DX: E11.9 Type 2 diabetes mellitus without complications (principal); I10 Essential (primary) hypertension
CPT/HCPCS: 36415; 80048; 82043; 83036